=== PATIENT | female | born 2005 | race Caucasian/White ===

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

== ENCOUNTER → 2025-02-20 | Outpatient (CLI) | payer SELFPAY ==
[2025-02-20 15:45] LABS: HCT 32.3 % (37.2-46.3); HGB 8.5 g/dL (12.0-15.0); MCH 16.9 pg (27.0-32.0); MCHC 26.3 g/dL (32.0-37.0); MCV 64.1 FL (80.0-97.0); Mean Platelet Volume 8.3 FL (9.5-12.2); NRBC Per 100 WBC 0 X 10*3/uL (0.00-0.01); Platelet Count 455 X 10*3/uL (140-440); RBC 5.04 X 10*6/uL (4.10-5.20); RDW 21.2 % (11.5-14.5); WBC 7.92 X 10*3/uL (4.50-10.00)
[2025-02-20 16:07] LABS: % Iron Saturation 74.91 (12.00-45.00); Ferritin 7.5 ng/mL (10.0-291.0)
[2025-02-20 16:17] LABS: Anisocytosis (M) 2+ (None Seen); Basophils # (A) 0.04 X 10*3/uL (0.00-0.10); Basophils % (A) 0.5 %; Eosinophils # (A) 0.12 X 10*3/uL (0.04-0.35); Eosinophils % (A) 1.5 %; Hypochromasia (M) 2+ (None Seen); Lymphocytes # (A) 2.64 X 10*3/uL (0.90-5.00); Lymphocytes % (A) 33.3 %; Microcytosis (M) 3+ (None Seen); Monocytes # (A) 0.42 X 10*3/uL (0.20-1.00); Monocytes % (A) 5.3 %; Neutrophils # (A) 4.64 X 10*3/uL (1.80-7.70); Neutrophils % (A) 58.6 %; Polychromasia 2+ (None Seen)
== END | disposition home or self-care (01) ==
LOC: LABWHC1 11:35
PROVIDERS: ATTEND Family Medicine
DX: D64.9 Anemia, unspecified (principal)
CPT/HCPCS: 36415; 82607; 82728; 82746; 83540; 83550; 85025